=== PATIENT | female | born 1990 | race Caucasian/White ===

== ENCOUNTER 2017-11-20 02:27 | Emergency (ER) | payer OTHER ==
[~2017-11-20] VITALS: Ht 162.5 cm; Wt 61.2 kg
[2017-11-20] MEDS ORDERED: VISTARIL25 MG PO (02:30)
[2017-11-20] MEDS ORDERED: PROZAC20 MG PO (02:30)
[2017-11-20] MEDS ORDERED: DOXYCYCLINE100 M3 PO (02:51)
[2017-11-20 02:56] LABS: BILIRUBIN NEGATIVE (NEGATIVE); BLOOD NEGATIVE (NEGATIVE); CLARITY SL CLOUDY (CLEAR); COLOR YELLOW (YELLOW); GLUCOSE NEGATIVE (NEGATIVE); KETONE NEGATIVE (NEGATIVE); LEUKO ESTERASE 2+ (NEGATIVE); NITRITE NEGATIVE (NEGATIVE); UROBILINOGEN 0.2 E.U./dl (0.2-1.0)
[2017-11-22 06:08] LABS: GONOCOCCUS BY NAA Positive (Negative)
== END 2017-11-20 03:24 | disposition home or self-care (01) ==
LOC: ED 02:27
PROVIDERS: Student in an Organized Health Care Education/Training Program
DX: Z20.2 Contact with and (suspected) exposure to infections with a predominantly sexual mode of transmission (principal); Z79.899 Other long term (current) drug therapy